=== PATIENT | female | born 1985 | race American Indian/Alaskan Native ===

== ENCOUNTER 2018-08-31 20:42 | Inpatient (IN) | payer MEDICAID ==
[2018-08-31 21:25] VITALS: BMI 31.1
--- NOTE | 2018-08-31 21:38 | OBADHP ---
Datetime: 08/31/2018 21:27 Admit Comment, IP Provider: 33 yo with IUP at 39+1 weeks presents with complaints of contra ctions +FM + CTX - LOF - VB POB: 2 PT PNSVD and 5 FT 2001, 2004, 2006, 2008, 2012, 2013 largest baby 6lb 13oz 2 TOP with D_C and 2 SAB PGYN: non contrib, LMP 11/30 PMH: denies PSH: denies FamHx: mother with HTn and DM denies smoking drinking and drug use PCN --> analphylaxis able to tolerate amoxicillin A/P: grandmultip in active labor admission labs UDS - with positive morphine and cannabinoids Vancomycin - GBS positive with PCN allergy epidural anticipate vaginal delivery Pelvic Type - PN: Adequate Abdomen - PN: Normal General - PN: Normal FHR - Baseline A Provider: 140 Membranes, Provider: Intact Pool Provider: Negative Vital Signs Provider: Reviewed; Within Normal Limits IP Chief Complaint: Uterine contractions NICHD Variability Prov Fetus A: Moderate 6-25bpm NICHD Accel Fetus A IP Provider: [id number] FHR Category Provider Fetus A: Category I NICHD Decel Fetus A IP Provider: None Dilatation, Provider: 4 Effacement, Provider: 90 Station, Provider: -2 Genitourinary Exam: Normal EGA AdmitDate IP: 39.1 IP Adm Impression: Term, intrauterine IP Admit Plan: Admit to unit
[2018-08-31] MEDS ORDERED: Vancomycin 2 GM in Sodium Chloride 0.9% 500 ML IVPB SCH (21:45)
[2018-08-31 22:10] LABS: BASO # 0.1 K/uL (0.0-0.2); EOS # 0.1 K/uL (0.0-0.7); HEMOGLOBIN 9.8 g/dL (11.0-16.0); NEUT # 6.1 K/uL (1.8-7.0)
[2018-08-31 22:15] LABS: SQUAMOUS EPITHIAL 7 /hpf (0-5); URINE BACTERIA OCC (<OCC); URINE BILIRUBIN NEGATIVE (NEGATIVE); URINE BLOOD 2+ (NEGATIVE); URINE COLOR Straw (YELLOW); URINE GLUCOSE (UA) NORMAL (Normal); URINE LEUKOCYTE ESTERASE 2+ Leu/uL (Negative); URINE PROTEIN NEGATIVE (NEGATIVE); URINE UROBILINOGEN NORMAL mg/dL (0.2-1.0)
[2018-08-31 22:16] LABS: URINE CLARITY Hazy (Clear)
[2018-08-31 22:19] LABS: BASO % 0.6 % (0.0-2.0); EOS % 0.7 % (0.0-4.0); LYMPH # 1.8 K/uL (1.0-4.3); LYMPH % 20.9 % (20.0-40.0); MEAN CELL VOLUME 87.3 fL (81.0-99.0); MEAN CORPUSCULAR HEMOGLOBIN 30.2 pg (27.0-31.0); MEAN CORPUSCULAR HGB CONC 34.6 g/dL (33.0-37.0); MEAN PLATELET VOLUME 8.4 fL (7.2-11.7); MONO # 0.7 K/uL (0.0-0.8); MONO % 8.1 % (0.0-10.0); NEUT % 69.7 % (50.0-75.0); NRBC % 0.1 % (0.0-2.0); RBC 3.24 Mil/uL (3.80-5.20); RED CELL DISTRIBUTION WIDTH 14.2 % (11.5-14.5); WHITE BLOOD COUNT 8.8 K/uL (4.8-10.8)
[2018-08-31 22:25] LABS: ALB/GLOB RATIO 1.1 (1.0-2.1); ALBUMIN 3.6 g/dL (3.5-5.0); ALT/SGPT 10 U/L (9-52); AST/SGOT 16 U/L (14-36); BLOOD UREA NITROGEN 3 mg/dL (7-17); CALCIUM 8.6 mg/dl (8.6-10.4); GFR NON-AFRICAN AMERICAN > 60
[2018-08-31 22:26] LABS: BARBITURATES, UR NEGATIVE (NEGATIVE); BENZODIAZEPINES, UR NEGATIVE (NEGATIVE); OPIATES, UR NEGATIVE (NEGATIVE); PHENCYCLIDINE, UR NEGATIVE (NEGATIVE)
[2018-08-31] MEDS ORDERED: Bupivacaine HCl/FentaNYL Cit 100 ML EPI ONE (22:44)
[2018-08-31 22:55] LABS: HEPATITIS B SURFACE AG Negative (NEGATIVE)
[2018-08-31] MEDS ORDERED: DiphenhydrAMINE 50 mg/ml Inj IVP STA (23:17)
[2018-08-31] MEDS ORDERED: DiphenhydrAMINE 50 mg/ml Inj ONE (23:21)
[2018-08-31] MEDS ORDERED: Benzocaine/Menthol 20%-0.5% Topical Spray (60 ml) TOP PRN (23:42)
--- NOTE | 2018-08-31 23:44 | OBDS ---
DELIVERY PERSONNEL Delivery Doctor: Dr. Cadence Berry Scrub Nurse: JayshreegilbertMiahthuan OBT Infrastructure Engineer: Stefanie Avila RN Anesthesiologist: MATERNAL INFORMATION Delivery Anesthesia: Epidural Estimated Blood Loss (ml): 250 LABOR SUMMARY EDC: 09/06/2018 00:00 LABOR INFORMATION Onset of Labor: 08/31/2018 17:00 Group B Beta Strep: Positive Steroids Given: None Reason Steroids Not Administered: Not Applicable STAGES OF LABOR Stage 3 hrs: 0 Stage 3 min: 6 Total Time in Labor hrs: 6 Total Time in Labor min: 35 VAGINAL DELIVERY Episiotomy: None Laceration Extension: N/A Laceration Type: None Laceration Repair: Not Applicable Laceration Repair Note: patient delivered healthy female infant JIMENA over intact perineum with apgars 9/9, EBl 250cc, all counts correct weight 6lb 5oz BABY A INFORMATION Infant Delivery Date/Time: 08/31/2018 23:29 Method of Delivery: Vaginal Born in Route : No : N/A SHOULDER DYSTOCIA BABY A Delivery Date/Time: 08/31/2018 23:29 PRESENTATION/POSITION BABY A Presentation: Cephalic Cephalic Presentation: Vertex PLACENTA INFORMATION BABY A Placenta Delivery Time : 08/31/2018 23:35 Placenta Method of Delivery: Spontaneous Placenta Status: Delivered INFANT INFORMATION BABY A Gestational Age at Delivery: 39.1 Gestational Status: Term Infant Outcome : Liveborn Condition : Stable Sex: Female IDENTIFICATION/MEDS BABY A ID Band Number: [id number] Sensor Number: [id number] WEIGHT/LENGTH BABY A Infant Birthweight (gms): 2850 Infant Weight (lb): 6 Weight (oz): 5 Length Inches: 18.50 Infant Length cms: 47.0 CORD INFORMATION BABY A No. Cord Vessels: 3 Nuchal Cord : N/A Cord Blood Taken: Yes Suction: Mouth; Nose
[2018-09-01] MEDS ORDERED: Oxycodone/Acetaminophen 5/325 mg Tab PO ONE (03:13)
--- NOTE | 2018-09-01 09:23 | OBPPN ---
Datetime: 09/01/2018 09:20 PP Nausea Prov: Denies PP Flatus Prov: Yes PP BM Prov: Yes PP Heart Prov: Normal PP Lungs Prov: Normal PP Abdomen/Uterus Prov: Normal PP Lochia Prov: Normal PP Vulva/Perineum Prov: Normal PP Impression Prov: Normal progression PP Plan Prov: Continue present management PP Progress Note Prov: PT HAS NO COMPLAINTS TODAY. DOING WELL. VITALS: VSS;AFEBRILE FUNDUS FIRM. HGB: 9.8CM A/P S/P PPD#1 1) VSS AFEBRILE 2) AMBULATING, LUCIA PO DIET. 3) CONTINUE ROUTINE CARE. IP PP Procedures: None
[2018-09-01] MEDS ORDERED: Influenza Vaccine 60 MCG/0.5 ML SYR (3 yr & up) IM ONE (16:59)
[2018-09-01] MEDS: Multiple Vitamins Tab PO SCH (17:00)
[2018-09-01 17:26] LABS: BASO # 0.1 K/uL (0.0-0.2); BASO % 1.5 % (0.0-2.0); EOS # 0.1 K/uL (0.0-0.7); EOS % 0.8 % (0.0-4.0); HEMOGLOBIN 9.6 g/dL (11.0-16.0); LYMPH # 1.6 K/uL (1.0-4.3); LYMPH % 17.9 % (20.0-40.0); MEAN CELL VOLUME 87.1 fL (81.0-99.0); MEAN CORPUSCULAR HEMOGLOBIN 30.3 pg (27.0-31.0); MEAN CORPUSCULAR HGB CONC 34.8 g/dL (33.0-37.0); MEAN PLATELET VOLUME 7.9 fL (7.2-11.7); MONO # 0.5 K/uL (0.0-0.8); MONO % 5.6 % (0.0-10.0); NEUT # 6.7 K/uL (1.8-7.0); NEUT % 74.2 % (50.0-75.0); NRBC % 0.1 % (0.0-2.0); RBC 3.16 Mil/uL (3.80-5.20); RED CELL DISTRIBUTION WIDTH 14.4 % (11.5-14.5)
--- NOTE | 2018-09-01 19:16 | RAD ---
Pelvis and right hip two views History: Right hip pain. COMPARISON: None available. 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 Calcified phleboliths in the pelvis. Bilateral hip joints appear preserved. 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
[2018-09-02] MEDS ORDERED: Simethicone 80 mg Chewtab PO PRN (01:11)
--- NOTE | 2018-09-02 08:24 | OBDCSUM ---
Datetime: 09/01/2018 14:09 Discharge Instructions, Provider: Specific instructions as noted Discharge Diagnosis, Provider: Term Delivered Discharge Time: 09/02/2018 11:00 Discharge Comment, Provider: Use abdominal binder F/U at the clinic in 1 wks
--- NOTE | 2018-09-02 08:24 | OBPPN ---
Datetime: 09/02/2018 08:20 PP Pain Prov: Within normal limits PP Nausea Prov: Denies PP Flatus Prov: Yes PP BM Prov: Yes PP Lungs Prov: Normal PP Abdomen/Uterus Prov: Normal PP Lochia Prov: Normal PP CVA Tenderness Prov: Normal PP Progress Prov: Normal PP Comments Phys Exam Prov: ABD: Soft, NT, Uterus firm below umbilicus. 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 IP PP Procedures: None Vital Signs Provider PP: Reviewed Vital Signs Provider Details PP: Pt still has pain from pubic diathesis, Doesn't want to use the abd ominal binder.
[2018-09-02 09:09] VITALS: RESP 18
[2018-09-02] MEDS: Multiple Vitamins Tab PO SCH (09:46)
[2018-09-02 16:20] VITALS: O2SAT 98
[2018-09-02 22:46] VITALS: BP 108/68; PULSE 72; TEMP 97.7
== END 2018-09-02 18:44 | disposition home or self-care (01) | DRG 560 ==
LOC: C.EROB 20:42 → C.4D 21:18 → C.4M 09-01 01:42
PROVIDERS: ADMIT Obstetrics & Gynecology; ATTEND Obstetrics & Gynecology
PROC: 10E0XZZ Delivery of Products of Conception, External Approach (ICD-10-PCS; principal; 2018-08-31)
DX: O99.824 Streptococcus B carrier state complicating childbirth (principal); Z3A.39 39 weeks gestation of pregnancy; O71.6 Obstetric damage to pelvic joints and ligaments; Z37.0 Single live birth